=== PATIENT | female | born 1990 | race Asian ===

== ENCOUNTER 2017-07-14 07:23 | Inpatient (IN) | payer MEDICAID ==
[~2017-07-14] VITALS: Ht 151.1 cm; Wt 56.2 kg
[2017-07-14] MEDS ORDERED: Lactated Ringer's 1,000 ML IV PRN (08:23)
[2017-07-14] MEDS ORDERED: Methylergonovine 0.2 mg/mL Inj IM PRN ×2 (08:25→21:55)
[2017-07-14] MEDS ORDERED: Oxytocin 10 Unit/mL Inj IM PRN ×2 (08:25→21:55)
[2017-07-14] MEDS ORDERED: fentaNYL-PF 50 mCg/mL 2 mL Inj IVPUSH PRN (08:25)
[2017-07-14] MEDS ORDERED: Carboprost 250 mCg/mL Inj IM PRN ×2 (08:25→21:55)
[2017-07-14] MEDS ORDERED: Sodium Chloride LOK Flush 10 mL Syringe IVFLUSH PRN (08:25)
[2017-07-14] MEDS ORDERED: Penicillin G K Inj 5,000,000 UNITS in Dextrose 5% Minibag Plus 100 ML IV ONE (08:25)
[2017-07-14] MEDS ORDERED: Hemorrhage Kit, Post Partum XX ONE ×2 (08:25→21:55)
[2017-07-14 08:46] LABS: Mean Corpuscular Hemoglobin 31.1 pg (27.0-35.0); Mean Corpuscular Volume 91.8 fL (81-100)
[2017-07-14] MEDS ORDERED: PREN-51 PO (10:09)
[2017-07-14] MEDS: Penicillin G K Inj 3,000,000 UNITS in IV Premix 1 EACH IV SCH ×2 (12:55→16:32)
[2017-07-14] MEDS ORDERED: Lactated Ringer's 1,000 ML IV SCH (13:42)
--- NOTE | 2017-07-14 13:44 | PCM.HPOB ---
Subjective Date of Service: Jul 14, 2017 Referring Provider: Admitting Physician: Karyn Levy MD Primary Care Physician: Karyn Levy MD Attending Physician: Karyn Levy MD Chief Complaint Leaking fluid History of Present History of Present Illness 26 Y at 39w3d AWA 07/18/17 by LMP and CW 8 weeks US SROM at ~6 cm 07/14/17 complicated with: * GBS positive * Anemia in , resolved. * GERD * Elevated initial Quad read , revised was Normal. * S<D growth US WNL at 38w1d Estimated Weight (EFW): 3188 g, EFW percentile rank: 43 % Past Medical History Hx Tobacco Use: No Hx Alcohol Use: No Hx Substance Use: No Past Family History Family History Non-contributory Allergy Coded Allergies: No Known Allergies (Unverified , 07/14/17) Exam Vital Signs VSS heart tones Category 1 Constitutional: Well-developed HEENT: Atraumatic Lungs: Clear to Auscultation, Clear to Percussion Heart: Regular Rate/Rhythm, Normal S1, Normal S2 Abdomen: Gravid Neurological/Psychiatric: Alert, Oriented X3 Neuro: Normal DTRs Labs/Diagnostics Lab/Diagnostic Information Laboratory Tests 72 Hours Test 07/14/17 08:28 White Blood Count 10.5th/mm3 (3.8-10.1) Red Blood Count 4.40mil/mm3 (3.90-5.20) Hemoglobin 13.7g/dL (12.0-15.6) Hematocrit 40.4% (35.0-46.0) Mean Corpuscular Volume 91.8fL (81-100) Mean Corpuscular Hemoglobin 31.1pg (27.0-35.0) Mean Corpuscular Hemoglobin Concent 33.9% (32.0-37.0) Red Cell Distribution Width 13.3% (12.3-15.4) Platelet Count 358bil/L (150-400) Maternal Blood Type: A (positive ) Antibody Screen: Negative Additional Information DM screen WNL (128) HIBV non-reactive RPR non-reactive HepBAg non-reactive Rubella immune OB Intrapartum Assessment/Plan Assessment 26 Y at 39w3d AWA 07/18/17 by LMP and CW 8 weeks US SROM at ~6 cm 07/14/17 complicated with: * GBS positive on PCN * Anemia in , resolved. * GERD * Elevated initial Quad read , revised was Normal. * S<D growth US WNL at 38w1d Estimated Weight (EFW): 3188 g EFW percentile rank: 43 % Karyn Levy MD Jul 14, 2017 13:44
[2017-07-14] MEDS ORDERED: Oxytocin 30 Units/500 mL LR 30 UNITS in IV Premix 1 EACH IV PRN ×2 (13:45→21:55)
[2017-07-14] MEDS: Oxytocin 30 Units/500 mL LR 30 UNITS in IV Premix 1 EACH IV PRN ×2 (18:23→21:51)
[2017-07-14] MEDS ORDERED: CeFAZolin Inj 2 GM in IV Premix 1 EACH IV ONE (21:50)
[2017-07-14] MEDS: Lactated Ringer's 1,000 ML IV SCH (21:51)
[2017-07-14] MEDS ORDERED: Witch Hazel-Glycerin Pads TOPICAL PRN (21:55)
[2017-07-14] MEDS ORDERED: Benzocaine (Dermoplast) 20% 60 Gm Spray TOPICAL PRN (21:55)
[2017-07-14] MEDS ORDERED: oxyCODONE-Acetamin 5-325 mg Tablet PO PRN (21:55)
[2017-07-14] MEDS ORDERED: LANOlin HPA 7 Gm Ointment TOPICAL PRN (21:55)
--- NOTE | 2017-07-14 22:50 | OP ---
[address] [address] OPERATIVE REPORT PATIENT: PADMINI HANSON : 1990 MR#: [id number] ADMIT: 07/14/2017 JOB ID: [id number] CORRECTED REPORT: DATE OF SURGERY: 07/14/2017 PREOPERATIVE DIAGNOSIS(ES): 1. Term intrauterine . 2. Spontaneous rupture of membranes. POSTOPERATIVE DIAGNOSIS(ES): 1. Term intrauterine . 2. Spontaneous rupture of membranes. PROCEDURE: Normal vaginal delivery and repair of third-degree laceration. SURGEON: Karyn Levy MD. ENTERPRISE INTEGRATION DEVELOPER: None. ESTIMATED BLOOD LOSS: 350 mL. ANESTHESIA: The patient received local anesthesia with 1% lidocaine for the repair of the third-degree laceration. SPECIMENS: Cord blood for typing and cord gases. OUTCOME: Male infant delivered in right occiput anterior position with one nuchal cord was released over the occiput. Infant weight is pending. Apgars please review delivery record. Infant was vigorous with a strong cry after delivery. Clear amniotic fluid. The placenta delivered intact with three-vessel cord. DESCRIPTION OF PROCEDURE: This is a 26-year-old, 1, para 0, presented at 39 weeks and 3 days gestation with spontaneous rupture of membranes at 6 a.m. July 14, 2017, clear fluid. The patient was admitted with cervix of 1 cm, 60% effaced, -3, regular contractions. Patient continued to make cervical change until she was 5 cm dilated at about 1543 hour. Then, she made no cervical change management facilitator 2 hours of observation after that, so Pitocin was started at around 18:30. She continued to contract regularly and found to be completely dilated at about 2010 hour. She pushed effectively to deliver at 20:58 via spontaneous vaginal delivery over an intact perineum under epidural anesthesia. Delivered a male in right occiput anterior position with one nuchal cord was released over the occiput. Shoulders delivered without difficulty. The was placed on the maternal abdomen and with stimulation the infant was vigorous with strong cry. Then, the delayed cord clamping was performed after 1 minute. Cord segment and cord blood was collected for typing and for blood gases. Then, placenta was delivered spontaneously intact at 2104. Fundal massage was performed. Oxytocin was started. Perineum was examined and 3rd degree laceration was repaired after thorough irrigation with sterile water and Betadine. Repair was performed with 2-0 Vicryl and 3-0 Vicryl after injection of local anesthesia with 1% lidocaine. The patient tolerated the procedure well. Minimal bleeding at the end of the procedure. Fundus was firm. All instrument, needles and sponge counts were correct x2. Mother and were recovering in the delivery room at the end of the procedure. IKaryn MD, was present and scrubbed for the entire procedure. Corrected by OLIVIA 07/20/17 at 12:51pm Corrected patient name. MTDD
[2017-07-15] MEDS: Penicillin G K Inj 3,000,000 UNITS in IV Premix 1 EACH IV SCH ×2 (00:30→02:37)
[2017-07-15] MEDS: Lactated Ringer's 1,000 ML IV SCH ×3 (05:51→21:51)
[2017-07-15 07:06] LABS: Mean Corpuscular Hemoglobin 31.3 pg (27.0-35.0); Mean Corpuscular Volume 93.3 fL (81-100)
[2017-07-15] MEDS: Ascorbic Acid 500 mg Tablet PO SCH ×2 (08:27→20:27)
--- NOTE | 2017-07-15 14:42 | PROG NOTE ---
[address] [address] PROGRESS NOTE PATIENT: PADMINI HANSON : 1990 MR#: [id number] ADMIT: 07/14/2017 JOB ID: [id number] DATE: 07/15/2017 SUBJECTIVE: The patient delivered last night at 9 p.m. with a 3rd degree perineal laceration, repaired by Dr. Levy. Doing well this morning. Voiding and ambulating, tolerating p.o. intake. Having difficulties with breast feeding. OBJECTIVE: Vital signs are 115/69 for blood pressure, respirations are 16, pulse is 107, temperature 36.7 degrees centigrade. Pulse ox is 98% on room air. Heart: Regular rate and rhythm. Positive S1, S2. Lungs: Clear to auscultation bilaterally. Abdomen: Firm uterine fundus palpated at 2 cm below the umbilicus. Nontender. Positive bowel sounds. Nondistended abdomen. Perineum: No active bleeding. Lower extremities: No calf tenderness appreciated bilaterally. LABORATORY: H and H this morning is 12.1 and 36.1. ASSESSMENT AND PLAN: The patient is 26 years old, day number one status post spontaneous vaginal delivery complicated with 3rd degree perineal laceration. 1- Continue perineal care. 2- Having difficulties with the . consult requested. 3- Continue with care. 4- Baby is monitored for maternal GBS positive status. Discussed the above with the patient, she agreed to the plan. TEGAN
[2017-07-16] MEDS: Lactated Ringer's 1,000 ML IV SCH (05:51)
[2017-07-16] MEDS: Ascorbic Acid 500 mg Tablet PO SCH (08:16)
[2017-07-16] MEDS ORDERED: DOCU-41 PO (10:45)
[2017-07-16] MEDS ORDERED: IBUP800T28 PO (10:45)
--- NOTE | 2017-07-16 10:59 | PCM.DIOB ---
Obstetrical Disch Instruction Date of Service: Jul 16, 2017 Dates of Hospitalization Date of Hospital Admission Jul 14, 2017 at 08:05 Providers Admitting Physician: Karyn Levy MD Primary Care Physician: Karyn Levy MD Attending Physician: Karyn Levy MD Discharge Diagnosis Discharge Diagnosis # Normal spontaneous vaginal delivery at 39 weeks and 3 days red # GBS positive Problems: (1) Positive GBS test Status: Acute ICD Code: B95.1 (2) (spontaneous vaginal delivery) Status: Acute ICD Code: O80 Diet Discharge Diet: No restrictions Activity Discharge Activity-General: Pelvic Rest for 6 weeks, Try not to overdue, Be up and about, Balance rest and activity, Activity as pain allows, Activity as energy allows, No lifting >15 pounds for 2 weeks Dressing and Incisional Care Hygiene: May shower, NO bathtub, hot tub or whirlpool, Perineal care, Witch Aubrie pads Additional Instructions Discharge Instructions you may take ibuprofen to control your pain. Take 100 mg tablets of ibuprofen every 6-8 hours as needed for pain and discomfort. You has been provided a prescription for docusate a stool softener. You may take docusate sodium as needed to become constipated. If you experience any increased bleeding please call [facility]. If you begin to experience dizziness weakness or large amount of bleeding go to the emergency room. This means if you soak 2 or more pads for more than 2 hours than call the clinic or go to the Emergency Room. You have been set up for an appointment for follow-up in 2 weeks at [facility]. Please check your BP several times between now and then and write them in a log to bring to your 2 week clinic visit. If you experience depression, Please seek help by calling [facility] or the Emergency Room. Nothing per vagina for 6 weeks (this includes tampons and intercourse). If your breast become red and warm and swollen continue to breast-feed and seek medical attention for evaluation for mastitis. Drink plenty of water and eat lots of fruits and vegetables. If you spike a fever in the next 2 weeks please call [facility]. Follow Up Plan Follow Up Plan Follow-up in 6 weeks at the [facility] clinic for your routine visit. Follow-up appointment: Weeks (6) Call your provider for: Fever or Chills, Shortness of breath, Heavy vaginal bleeding, Heavy bleeding, Epigastric pain, Excessive constipation, Vaginal discomfort, Red painful breasts Lasha Lujan DO Jul 16, 2017 10:59
--- NOTE | 2017-07-16 11:13 | PCM.DC.OB ---
Obstetrical Discharge Summary Date of Service Jul 16, 2017 Date of hospital admission Jul 14, 2017 at 08:05 Date of Discharge: Jul 16, 2017 Providers Admitting Physician: Karyn Levy MD Primary Care Physician: Karyn Levy MD Attending Physician: Karyn Levy MD Diagnosis at Time of Discharge # Status post normal spontaneous delivery of a 3053 g live-born male on 07/14/2017 at 2058. # Tested GBS positive and received 4 doses of penicillin Problems: (1) Positive GBS test Status: Acute ICD Code: B95.1 (2) (spontaneous vaginal delivery) Status: Acute ICD Code: O80 Consultations Anesthesia for epidural Brief History and Physical: This is a pleasant 26 Y at 39w3d with AWA 07/18/17 based on LMP and CW 8 weeks US, who presented in active labor, SROM at ~6 cm 07/14/17, was complicated with tested positive for GBS, anemia during which resolved, quad screen initially read as elevated but revised as normal. S<D growth US WNL at 38w1d. Estimated Weight (EFW): 3188 g, EFW percentile rank:43 %. General: Alert and oriented 3 no acute distress. HEENT: Head normocephalic atraumatic. Chest: Heart regular rate and rhythm no murmur. Lungs: CTAB all sigala Abdomen: Appropriate a tender, , fundus firm just below the level of the umbilicus, no rebound no guarding. Genitourinary: No CVA tenderness Extremities: No shara, pulses equal bilaterally Psychiatric: Patient's mood is and affect is congruent, she is communicative, and does not appear anxious. Hospital Course: at 39 weeks 3 days admitted to the [facility] in active labor with spontaneous rupture of membranes, with cervix 6 images dilated, she was GBS positive and received 4 doses of penicillin during her labor. Mother progressed to spontaneous vaginal delivery of a 3053 g liveborn male with three- vessel cord wrapped loosely around neck one time, she sustained a 3 third- degree perineal tear, that was repaired. Postdelivery mother did well and has been ambulating without assistance, nutritional status is good, she is voiding without difficulty, passing stool. Of note social work instructor consult was initiated secondary to maternal anxiety. At time of discharge mother had no concerns, was provided appropriate follow-up instructions if she began to experience depression, or felt she needed additional assistance for any matter. Her and primary support person was present during her last exam. Support person appeared and seem to be supportive of the new mother. Docusate Sodium (Colace) 100 Mg Capsule 100 MG PO BID Prescribed by: LASHA CALIX DO Ibuprofen (Ibuprofen) 800 Mg Tablet 800 MG PO Q6H PRN PRN For Pain Prescribed by: LASHA CALIX DO Vit No.78/Iron/FA (Prenatabs FA Tablet) 1 Each Tablet 1 EACH PO DAILY ( Reported) Last Taken: 1 tab on 07/13/17 0900 Discharge Diet: No restrictions Discharge Activity-General: Pelvic Rest for 6 weeks, Pelvic Rest, Try not to overdue, Be up and about, Balance rest and activity, Activity as pain allows, Activity as energy allows, No lifting >15 pounds for 2 weeks Lasha Calix DO Jul 16, 2017 11:13
[2017-07-16 11:20] VITALS: BP 113/74; PULSE 81; RESP 18
--- NOTE | 2017-07-16 13:22 | NUR ---
1pm 07/16/2107 Family Assessment: CASSIA Lobo, & TYREL Parsons, were assessed in Family room #3215 prior to d/c. CASSIA lives w/ FOB who is supportive, participating, and involved in [employer] (BB) life. They both have supportive family in nearby area. They have bassinet, car seat, and will setting up f/u PCP for Darian Tuesday07/18/17. No CD, or MH Hx, pt denies any current depression, but is aware of post- depression and possible psychosis. Denies any DV, or abuse Hx. No special supports, or health concerns for BB and no POULTRYMAN referrals requested by family. Staff aware. Antonio Diza, LOCOMOTIVE OBSERVER
== END 2017-07-16 13:44 | disposition home or self-care (01) | DRG 775 ==
LOC: FBCO 07:23 → FBC 08:05
PROVIDERS: ADMIT Obstetrics & Gynecology; ATTEND Obstetrics & Gynecology
PROC: 10E0XZZ Delivery of Products of Conception, External Approach (ICD-10-PCS; principal; 2017-07-14)
PROC: 0DQR0ZZ Repair Anal Sphincter, Open Approach (ICD-10-PCS; 2017-07-14)
DX: O70.20 Third degree perineal laceration during delivery, unspecified (principal); O99.02 Anemia complicating childbirth; O69.81X0 Labor and delivery complicated by cord around neck, without compression, not applicable or unspecified; Z37.0 Single live birth; Z3A.39 39 weeks gestation of pregnancy